=== PATIENT | male | born 1985 | race Caucasian/White ===

== ENCOUNTER 2016-11-04 22:42 | Emergency (ER) | payer MEDICAID ==
[~2016-11-04 22:42] MED LIST: ALBU6.7H INH; IBUP800T23 PO
[2016-11-04 23:14] VITALS: BP 109/65; PULSE 91; RESP 20; TEMP 98.3; O2SAT 98
[2016-11-04] MEDS ORDERED: KETOROLAC TROMETHAMINE 30 MG/ML (IVP) VIAL IV PUSH ONE (23:30)
--- NOTE | 2016-11-04 23:50 | PD ---
HPI Chief Complaint: Pain: Acute or Chronic Time Seen by Provider: 23:46 Travel History International Travel<30 days: No Contact w/Intl Traveler<30days: No Traveled to known affect area: No History of Present Illness HPI 31-year-old [id number] white male presents to emergency department with complains of pain in his second MCP joint today. 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 He denies any direct trauma to his hand. He denies any prior problems with his hand. He states that he is up-to-date with immunizations. He denies any IV drug use. No recent fever or chills. No numbness, tingling or weakness. States the pain is mild to moderate. Worse with movement of the finger and gripping. Some early for the remaining still. He also states that he's had some drainage from his right eye, itching and redness. He feels it may be allergic in nature from a dog. PFSH Past Medical History Narrative Medical Asthma Asthma: Yes Autoimmune Disease: No Blood Disorders: No Cancer: No Cardiovascular Problems: No Diminished Hearing: No Genitourinary: No Musculoskeletal: No Neurologic: No Psychiatric: No Respiratory: Yes Tetanus Vaccination: < 5 Years Past Surgical History Narrative Surgical aPPENDECTOMY Abdominal Surgery: Yes (APPENDIX) Cardiac Surgery: No Ear Surgery: No Endocrine Surgery: No Eye Surgery: No Genitourinary Surgery: No Gynecologic Surgery: No Oral Surgery: No Pacemaker: No Thoracic Surgery: No Other Surgery: Yes Social History Alcohol Use: No Tobacco Use: Yes Substance Use: No Allergies-Medications (Allergen,Severity, Reaction): Coded Allergies: Phenergan (Verified Allergy, Severe, Cramping, 05/25/16) patient states he became contorted Penicillin (Verified Allergy, Mild, Itching, 05/25/16) Codeine (Verified Allergy, Unknown, 05/25/16) pt cannot remember reaction, only that his mother states he has been allergic since childhood Reglan (Verified Allergy, Unknown, 11/04/16) Reported Meds & Prescriptions Reported Meds & Active Scripts Active Ibuprofen 800 Mg Tab 800 Mg PO Q8H PRN Proventil Hfa (Albuterol Sulfate) 6.7 Gm Aero 2 Puff INH Q6HR PRN Reported Ibuprofen 800 Mg Tab 800 Mg PO TID Review of Systems Except as stated in HPI: all other systems reviewed are Neg General / Constitutional: No: Fever, Chills Eyes: Positive: Drainage, Redness, Tearing, No: Diploplia, Blurred Vision, Photophobia, Foreign Body Sensation, Pain, Visual changes Musculoskeletal: Positive: Arthralgias, Limited ROM, Edema, Pain, No: Myalgias Skin: No Rash Physical Exam Narrative GENERAL: This is a well-nourished, well-developed patient, in no apparent distress. SKIN: No rashes, ecchymoses or lesions. Warm and dry. HEAD: Atraumatic. Normocephalic. EYES: PERRL, EOMI,. No scleral icterus. The right eye is injected. The upper or lower lids are mildly edematous and erythematous. There is mucoid drainage. The left eye is clear. There is mild injection. EARS: Clear NOSE: Nasal turbinates appear normal. THROAT: Mucosa pink and moist. Airway patent. NECK: Trachea midline. supple, moves head freely. LUNGS: Clear to auscultation. CV: Regular in rhythm. ABDOMEN: Soft nontender. EXT: No clubbing cyanosis or edema. Examination of the right hand reveals pain , mild redness and warmth to the second MCP joint. He has full extension but limited flexion due to pain. There is no pain with movement of the DIP or PIP. There is no pain in the index finger itself. No pain with movement of the thumb, middle, ring and little finger. He has good Refill. He has intact median/radial/ulnar nerves. I see no evidence of IV drug abuse. Data Data Last Documented VS Vital Signs Date Time Temp Pulse Resp B/P Pulse Ox O2 Delivery O2 Flow Rate FiO2 11/04/16 23:14 98.3 91 20 109/65 98 Orders Complete Blood Count With Diff (11/04/16 23:17) Basic Metabolic Panel (Bmp) (11/04/16 23:17) C-Reactive Protein (Crp) (11/04/16 23:17) Westergren Sedimentation Rate (11/04/16 23:17) Ketorolac Inj (Toradol Inj) (11/04/16 23:30) Finger ([id number]) (11/04/16 23:17) Iv Access Insert/Monitor (11/04/16 23:17) Erythromycin 0.5% Opth Oint (Ilotycin 0. (11/05/16 01:30) Labs Laboratory Tests Test 11/04/16 23:57 White Blood Count 7.5 TH/MM3 Red Blood Count 5.47 MIL/MM3 Hemoglobin 16.4 GM/DL Hematocrit 46.8 % Mean Corpuscular Volume 85.6 FL Mean Corpuscular Hemoglobin 29.9 PG Mean Corpuscular Hemoglobin 35.0 % Concent Red Cell Distribution Width 13.3 % Platelet Count 367 TH/MM3 Mean Platelet Volume 6.4 FL Neutrophils (%) (Auto) 47.5 % Lymphocytes (%) (Auto) 38.3 % Monocytes (%) (Auto) 8.1 % Eosinophils (%) (Auto) 5.1 % Basophils (%) (Auto) 1.0 % Neutrophils # (Auto) 3.6 TH/MM3 Lymphocytes # (Auto) 2.9 TH/MM3 Monocytes # (Auto) 0.6 TH/MM3 Eosinophils # (Auto) 0.4 TH/MM3 Basophils # (Auto) 0.1 TH/MM3 CBC Comment DIFF FINAL Differential Comment Erythrocyte Sedimentation Rate 2 mm/hr Sodium Level 135 MEQ/L Potassium Level 4.0 MEQ/L Chloride Level 100 MEQ/L Carbon Dioxide Level 30.8 MEQ/L Anion Gap 4 MEQ/L Blood Urea Nitrogen 13 MG/DL Creatinine 0.90 MG/DL Estimat Glomerular Filtration 98 ML/MIN Rate Random Glucose 83 MG/DL Calcium Level 9.3 MG/DL C-Reactive Protein 0.40 MG/DL MDM Medical Decision Making Medical Screen Exam Complete: Yes Emergency Medical Condition: Yes Medical Record Reviewed: Yes Interpretation(s) Last 24 hours Impressions Finger X-Ray 11/04/16 [id number] Signed Impressions: Service Date/Time: November 23:32 - CONCLUSION: No acute abnormality is identified. Hollis Cotton MD Laboratory Tests Test 11/04/16 23:57 White Blood Count 7.5 TH/MM3 Red Blood Count 5.47 MIL/MM3 Hemoglobin 16.4 GM/DL Hematocrit 46.8 % Mean Corpuscular Volume 85.6 FL Mean Corpuscular Hemoglobin 29.9 PG Mean Corpuscular Hemoglobin 35.0 % Concent Red Cell Distribution Width 13.3 % Platelet Count 367 TH/MM3 Mean Platelet Volume 6.4 FL Neutrophils (%) (Auto) 47.5 % Lymphocytes (%) (Auto) 38.3 % Monocytes (%) (Auto) 8.1 % Eosinophils (%) (Auto) 5.1 % Basophils (%) (Auto) 1.0 % Neutrophils # (Auto) 3.6 TH/MM3 Lymphocytes # (Auto) 2.9 TH/MM3 Monocytes # (Auto) 0.6 TH/MM3 Eosinophils # (Auto) 0.4 TH/MM3 Basophils # (Auto) 0.1 TH/MM3 CBC Comment DIFF FINAL Differential Comment Erythrocyte Sedimentation Rate 2 mm/hr Sodium Level 135 MEQ/L Potassium Level 4.0 MEQ/L Chloride Level 100 MEQ/L Carbon Dioxide Level 30.8 MEQ/L Anion Gap 4 MEQ/L Blood Urea Nitrogen 13 MG/DL Creatinine 0.90 MG/DL Estimat Glomerular Filtration 98 ML/MIN Rate Random Glucose 83 MG/DL Calcium Level 9.3 MG/DL C-Reactive Protein 0.40 MG/DL Differential Diagnosis Differential diagnosis: Septic joint, gout, inflammatory arthritis, sprain, strain, overuse injury Narrative Course IV access is obtained. Routine laboratory tests for analysis including CBC, chemistry, CRP and sedimentation rate. X-ray of the right index finger. Toradol 30 g IV. The patient's laboratory tests have been reviewed. His x-ray is unremarkable. I suspect this is not an infectious process. I suspect this is an overuse inflammatory process. The patient will be instructed to rest, elevate, ice and take Motrin. I recommend that the patient be rechecked again in the next 1-2 days or sooner if symptoms worsen. This is inflammatory arthritis of the right second MCP joint, conjunctivitis Diagnosis Primary Impression: right second MCP inflammatory arthritis Additional Impression: Conjunctivitis Qualified Code: H10.9 - Conjunctivitis of both eyes, unspecified conjunctivitis type Patient Instructions: General Instructions Departure Forms: Tests/Procedures, Work Release Special Instructions: No work 2 days. Additional Instructions: Rest. Elevate above the heart. Ice for the next day or 2. Motrin. Wash eyelashes with baby shampoo twice daily. Cool compress. One ribbon of erythromycin ointment in each eye 4 times a day. Follow-up with a tile edger in the next 3-5 days. Recheck in the next 24-48 hours with a primary care doctor or an orthopedist. Return to the ER if symptoms worsen or problems develop. Med/Other Pt SpecificInfo: Prescription(s) given Scripts Ibuprofen 800 Mg [id number] Mg PO Q8H PRN (Pain/Inflammation) #30 TAB Prov:Arash Ward MD 11/05/16 Disposition: 01 DISCHARGE HOME Condition: Stable Ulices Martinez Nov 04, 2016 23:50
--- NOTE | 2016-11-05 00:06 | RADRPT ---
EXAM DATE/TIME: 11/04/2016 23:32 [facility] COMPARISON: No previous studies available for comparison. INDICATIONS : Right hand 2nd digit pain. MEDICAL HISTORY : None. SURGICAL HISTORY : None. ENCOUNTER: Initial ACUITY: 1 day PAIN SCORE: 0/10 LOCATION: Right hand, 2nd digit. FINDINGS: Three views the right hand second digit demonstrate no fracture or dislocation. Mineralization is wit hin normal limits and there is no significant arthropathy. No soft tissue abnormality or radiopaque f oreign body is identified. CONCLUSION: No acute abnormality is identified. Hollis Cotton MD on November 05, 2016 at 0:03 Board Certified Radiologist. This report was verified electronically.
[2016-11-05 00:20] LABS: AUTOMATED NEUTROPHIL # 3.6 TH/MM3 (1.8-7.7); BASOPHIL # 0.1 TH/MM3 (0-0.2); EOSINOPHIL # 0.4 TH/MM3 (0-0.4); EOSINOPHIL % 5.1 % (0.0-4.0); HEMATOCRIT 46.8 % (39.0-51.0); HEMO FLAGS DIFF FINAL; LYMPH % 38.3 % (9.0-44.0); LYMPHOCYTE # 2.9 TH/MM3 (1.0-4.8); MEAN CELL VOLUME 85.6 FL (80.0-100.0); MEAN CORPUSCULAR HEMOGLOBIN 29.9 PG (27.0-34.0); MONO % 8.1 % (0.0-8.0); NEUT % 47.5 % (16.0-70.0); PLATELET COUNT 367 TH/MM3 (150-450); RED BLOOD COUNT 5.47 MIL/MM3 (4.50-5.90); RED CELL DISTRIBUTION WIDTH 13.3 % (11.6-17.2); WHITE BLOOD COUNT 7.5 TH/MM3 (4.0-11.0)
[2016-11-05 00:32] LABS: BICARBONATE 30.8 MEQ/L (21.0-32.0)
[2016-11-05] MEDS ORDERED: IBUP800T23 PO (01:05)
[2016-11-05] MEDS ORDERED: ERYTHROMYCIN 0.5% OPTH OINT 3.5 GM TUBO EACH EYE ONE (01:30)
== END 2016-11-05 01:49 | disposition home or self-care (01) ==
LOC: NEPB 22:42
DX: M06.4 Inflammatory polyarthropathy (principal); H10.31 Unspecified acute conjunctivitis, right eye
CPT/HCPCS: 73140; 80048; 85025; 85652; 86140; 96374; 99283; J1885

== ENCOUNTER 2017-08-30 16:50 | Emergency (ER) | payer MEDICAID ==
[~2017-08-30] VITALS: Ht 177.8 cm; Wt 63.9 kg
[~2017-08-30 16:50] MED LIST changes: +IBUP1TAB7 PO
[2017-08-30 17:15] VITALS: RESP 18; TEMP 98.4; O2SAT 99
--- NOTE | 2017-08-30 17:59 | PD ---
HPI Chief Complaint: Oral / Dental Pain or Problem Time Seen by Provider: 17:47 Travel History International Travel<30 days: No Contact w/Intl Traveler<30days: No Traveled to known affect area: No History of Present Illness HPI 32 year old male presents to the emergency department for evaluation of dental pain that started yesterday when he broke his left back molar. Patient denies any fevers, chills. He has no other complaints at this time. No cough, congestion, chest pain, shortness of breath, abdominal pain, nausea, vomiting, diarrhea. Moderate severity. No exacerbating or alleviating factors. PFSH Past Medical History Asthma: Yes Autoimmune Disease: No Blood Disorders: No Cancer: No Cardiovascular Problems: No Diminished Hearing: No Genitourinary: No Musculoskeletal: No Neurologic: No Psychiatric: No Respiratory: Yes Past Surgical History Abdominal Surgery: Yes (APPENDIX) Cardiac Surgery: No Ear Surgery: No Endocrine Surgery: No Eye Surgery: No Genitourinary Surgery: No Gynecologic Surgery: No Oral Surgery: No Pacemaker: No Thoracic Surgery: No Other Surgery: Yes Social History Alcohol Use: No Tobacco Use: Yes Substance Use: No Allergies-Medications (Allergen,Severity, Reaction): Coded Allergies: promethazine (Unverified Allergy, Severe, Cramping, 08/30/17) patient states he became contorted penicillin G (Unverified Allergy, Mild, Itching, 08/30/17) codeine (Unverified Allergy, Unknown, 08/30/17) pt cannot remember reaction, only that his mother states he has been allergic since childhood metoclopramide (Unverified Allergy, Unknown, 08/30/17) Reported Meds & Prescriptions Reported Meds & Active Scripts Active Peridex Liq (Chlorhexidine Gluconate (Mouth) Liq) 0.12% Soln 15 Ml SWISH-SPIT BID Ibuprofen 800 Mg Tab 800 Mg PO TID PRN Clindamycin (Clindamycin HCl) 150 Mg Cap 300 Mg PO Q6H 10 Days Review of Systems Except as stated in HPI: all other systems reviewed are Neg Physical Exam Narrative GENERAL: Well-nourished, well-developed male patient, ambulatory and in no acute distress. Afebrile. ENT: Mucosa pink and moist. No erythema or exudates. No uvular edema. No uvular , palatal, or tonsillar deviation. Airway patent. Nasal turbinates appear normal without nasal blood, purulent drainage or septal hematoma. Bilateral tympanic membranes are clear without erythema or perforation. Left back molar is broken. No obvious fluctuance or abscess. SKIN: Focused skin assessment warm/dry. HEAD: Normocephalic. EYES: No scleral icterus. No injection or drainage. NECK: Supple, trachea midline. No JVD or lymphadenopathy. CARDIOVASCULAR: Regular rate and rhythm without murmurs, gallops, or rubs. RESPIRATORY: Breath sounds equal bilaterally. No accessory muscle use. Lung sounds are clear to auscultation. GASTROINTESTINAL: Abdomen soft, non-tender, nondistended. MUSCULOSKELETAL: No cyanosis, or edema. BACK: Nontender without obvious deformity. No CVA tenderness. Data Data Last Documented VS Vital Signs Date Time Temp Pulse Resp B/P (MAP) Pulse Ox O2 Delivery O2 Flow Rate FiO2 08/30/17 18:26 08/30/17 17:15 98.4 18 99 Orders Orders Clindamycin (Cleocin) (08/30/17 18:00) Bupivacaine Pf 0.5% Inj (Marcaine Pf 0.5 (08/30/17 18:00) Ed Discharge Order (08/30/17 18:22) MDM Medical Decision Making Medical Screen Exam Complete: Yes Emergency Medical Condition: Yes Medical Record Reviewed: Yes Differential Diagnosis dental abscess vs. toothache vs. gingivitis Narrative Course 32 year old male presents to the emergency department for evaluation of dental pain that started yesterday when he broke a tooth. Patient will be started on clindamycin. He verbalizes agreement to dental block for pain relief. The patient was discharged in stable condition with instructions, including return instructions and follow up instructions. Procedures Procedure Narrative The area of dental pain was injected with 2mls of 0.5% Marcaine. Patient tolerated the procedure well. Diagnosis Primary Impression: Toothache Referrals: Dentist call for appointment Patient Instructions: General Instructions, Toothache (ED) Additional Instructions: Take antibiotic as directed until gone. Ibuprofen as instructed as needed with food for pain. Use Peridex oral solution. Follow-up with a dentist. Return to the emergency department for any acute worsening of symptoms. Med/Other Pt SpecificInfo: Prescription(s) given Scripts Chlorhexidine Gluconate (Mouth) Liq (Peridex Liq) 0.12% Soln 15 ML SWISH-SPIT BID, #473 ML 0 Refills Prov: Alessandra Boyce 08/30/17 Ibuprofen (Ibuprofen) 800 Mg Tab 800 MG PO TID Y for PAIN SCALE 1 TO 10, #21 TAB 0 Refills Prov: Alessandra Boyce 08/30/17 Clindamycin (Clindamycin) 150 Mg Cap 300 MG PO Q6H for Infection for 10 Days, #80 CAP 0 Refills Prov: Alessandra Boyce 08/30/17 Disposition: 01 DISCHARGE HOME Condition: Stable Alessandra Boyce Aug 30, 2017 17:58
[2017-08-30] MEDS ORDERED: CLINDAMYCIN 150 MG CAP PO ONE (18:00)
[2017-08-30] MEDS ORDERED: BUPIVACAINE HCL PF 0.5% 10 ML VIAL INFIL ONE (18:00)
[2017-08-30 18:02] VITALS: BP 151/90
[2017-08-30] MEDS ORDERED: CLIN150C14 PO (18:02)
[2017-08-30] MEDS ORDERED: IBUP1TAB7 PO (18:02)
[2017-08-30] MEDS ORDERED: PERI0.126 SWISH-SPIT (18:02)
== END 2017-08-30 18:27 | disposition home or self-care (01) ==
LOC: PHEFT 16:50
DX: K03.81 Cracked tooth (principal); J45.909 Unspecified asthma, uncomplicated; Z72.0 Tobacco use; Z88.0 Allergy status to penicillin; Z88.5 Allergy status to narcotic agent
CPT/HCPCS: 64400